=== PATIENT | male | born 1945 | race African-American/Black ===

== ENCOUNTER 2016-05-26 16:31 | Emergency (ER) | payer MEDICARE ==
[~2016-05-26] VITALS: Ht 167.6 cm; Wt 91.0 kg
[~2016-05-26 16:31] MED LIST: GLUCTAB PO; LISI2.5T55 PO; LORT5TAB PO; SIMV40 PO
[2016-05-26 16:33] VITALS: BP 213/95; PULSE 64; RESP 16; TEMP 97.6; O2SAT 98
[2016-05-26 16:50] VITALS: BP 156/73; PULSE 72; RESP 20; O2SAT 98
--- NOTE | 2016-05-26 17:29 | PD ---
HPI Chief Complaint: Lump, Cyst, Hernia Time Seen by Provider: 17:29 Travel History International Travel<30 days: No Contact w/Intl Traveler<30days: No Traveled to known affect area: No History of Present Illness HPI 70-year-old male with history of diabetes presents to the emergency department for evaluation of tender painful lump to his right mid back for 2 weeks. Patient states that he's had a lump forming on his back for the past 2 weeks that has been getting larger. States over the past several days in his discharge and drainage from the site. States he's had some subjective fever but has not taken his temperature. Aggravated with palpation. Denies any alleviating factors. Denies any chills, nausea, vomiting, diarrhea. [facility] was seen [facility] today and they sent him here for drainage of this abscess. He is not currently on any antibiotics. No other complaints. [facility] Past Medical History Diabetes: Yes (TYPE 2 ) Patient Takes Glucophage: No Hypertension: Yes Triglycerides - High: Yes Tetanus Vaccination: Unknown Influenza Vaccination: Yes ?: Not Past Surgical History Surgical History: No Previous Surgery Social History Alcohol Use: Yes (OCCASIONALLY) Tobacco Use: No Substance Use: No Allergies-Medications (Allergen,Severity, Reaction): Coded Allergies: No Known Allergies (Verified , 06/02/11) Reported Meds & Prescriptions Reported Meds & Active Scripts Active No Active Prescriptions or Reported Medications Review of Systems Except as stated in HPI: all other systems reviewed are Neg Physical Exam Narrative GENERAL: Well-nourished and well-developed pleasant patient in no acute distress who is nontoxic appearing. SKIN: Warm and dry. Approximately 8 cm in diameter tender fluctuant mass to right mid back with mild discharge. No surrounding erythema or warmth. HEAD: Normocephalic and atraumatic. EYES: No injection, drainage, or hyphema noted. PERRLA. EOMI. ENT: No nasal drainage noted. Oropharynx is clear. NECK: Supple and the trachea is midline. CARDIOVASCULAR: Regular rate and rhythm. RESPIRATORY: Breath sounds are equal bilaterally with no accessory muscle use, wheezing, rhonchi, or crackles. GASTROINTESTINAL: Abdomen is soft, non-tender, and nondistended. MUSCULOSKELETAL: No obvious deformities, swelling, cyanosis, or ecchymosis is present throughout the upper and lower extremities. Patient has full range of motion without any signs of neurovascular compromise. NEUROLOGICAL: Awake, alert, and oriented. Normal speech and gait. Cranial nerves are grossly intact. Data Data Last Documented VS Vital Signs Date Time Temp Pulse Resp B/P Pulse Ox O2 Delivery O2 Flow Rate FiO2 05/26/16 16:50 72 05/26/16 16:50 20 156/73 98 Room Air 05/26/16 16:33 97.6 Orders Lidocai-Epi 1%-1:100,000 Inj (Xylocaine- (05/26/16 17:30) [facility] Medical Decision Making Medical Screen Exam Complete: Yes Emergency Medical Condition: Yes Differential Diagnosis Abscess versus sebaceous cyst versus cellulitis Narrative Course 70-year-old male presents to the emergency department for evaluation of abscess to right upper back for 2 weeks. Patient is afebrile, vital signs are stable. There is no surrounding cellulitis. I&D is performed, see procedure narrative. Patient will be placed on Bactrim and Keflex. Advised follow-up as an outpatient. Procedures Procedure Narrative After the risks and benefits were discussed the following procedure was performed: INCISION AND DRAINAGE OF ABSCESS: The area was prepped and was sterilely draped. A subcutaneous wheal of 1 % Xylocaine with epinephrine with a total number 4 mL was used to anesthetize the area. The area was properly anesthetized. A number 11 scalpel was used to make a 1 -cm incision across the area of the abscess. Cultures were obtained. The abscess was drained an irrigated with normal saline. Sterile dressing applied. Diagnosis Primary Impression: Abscess Referrals: Primary Care Physician Patient Instructions: Abscess (ED), Abscess Incision and Drainage (ED), General Instructions Additional Instructions: Apply warm compresses. Take medications as prescribed with food and a full glass of water. Follow-up with your Primary Care Physician. Return to the ED for any acute worsening of symptoms. Med/Other Pt SpecificInfo: Prescription(s) given Scripts Cephalexin (Keflex)500 Mg Srh558 Mg PO Q6H 10 Days Ref 0 Prov:Lulu Quintana DO 05/26/16 Sulfamethoxazole-Trimethoprim (Bactrim DS)800-160 Mg Tab1 Tab PO BID 10 Days Ref 0 Prov:Lulu Quintana DO 05/26/16 Disposition: 01 DISCHARGE HOME Condition: Stable Yaneli Francis May 26, 2016 17:29
[2016-05-26] MEDS ORDERED: LIDOCAINE 1%/EPINEPHrine 1:100,000 SOLN 20 ML VIAL INFIL ONE (17:30)
[2016-05-26] MEDS ORDERED: CEPH-460 PO (17:56)
[2016-05-26] MEDS ORDERED: BACT800T5 PO (17:56)
[2016-05-26 18:15] VITALS: BP 147/71; PULSE 73; RESP 20; O2SAT 98
== END 2016-05-26 18:15 | disposition home or self-care (01) ==
LOC: NEPE 16:31
DX: L02.212 Cutaneous abscess of back [any part, except buttock and flank] (principal); E11.9 Type 2 diabetes mellitus without complications; I10 Essential (primary) hypertension
CPT/HCPCS: 10060; 87070